=== PATIENT | female | born 1965 | race Caucasian/White ===

== ENCOUNTER → 2017-05-04 | Outpatient (CLI) | payer MEDICARE | END | disposition home or self-care (01) | LOC: SHCH 08:06 | PROVIDERS: ATTEND Internal Medicine Cardiovascular Disease | DX: I10 Essential (primary) hypertension (principal) | CPT/HCPCS: 93306 ==

== ENCOUNTER → 2017-06-06 | Outpatient (CLI) | payer MEDICARE | END | disposition home or self-care (01) | LOC: SHCH 08:19 | PROVIDERS: ATTEND Internal Medicine Cardiovascular Disease | DX: I10 Essential (primary) hypertension (principal) | CPT/HCPCS: 93975 ==

== ENCOUNTER → 2019-01-19 | Outpatient (CLI) | payer MEDICARE | END | disposition home or self-care (01) | LOC: OIH 13:00 | PROVIDERS: ATTEND Internal Medicine | DX: M16.11 Unilateral primary osteoarthritis, right hip (principal) | CPT/HCPCS: 73502 ==

== ENCOUNTER → 2022-11-11 | Outpatient (CLI) | payer MEDICARE | END | disposition home or self-care (01) | LOC: RAH 13:32 | PROVIDERS: ATTEND Internal Medicine | DX: S00.03XA Contusion of scalp, initial encounter (principal); S00.83XA Contusion of other part of head, initial encounter; S09.90XA Unspecified injury of head, initial encounter; M47.812 Spondylosis without myelopathy or radiculopathy, cervical region; R07.89 Other chest pain; R07.81 Pleurodynia; M54.14 Radiculopathy, thoracic region; M54.12 Radiculopathy, cervical region; M25.561 Pain in right knee; M25.511 Pain in right shoulder; M24.9 Joint derangement, unspecified; L03.119 Cellulitis of unspecified part of limb; X58.XXXA Exposure to other specified factors, initial encounter; Y93.89 Activity, other specified; Y92.89 Other specified places as the place of occurrence of the external cause; Y99.8 Other external cause status | CPT/HCPCS: 70450; 72125 ==

== ENCOUNTER 2022-11-12 12:01 | Inpatient (IN) | payer MEDICARE ==
[~2022-11-12] VITALS: Ht 152.4 cm; Wt 82.6 kg
[2022-11-12] MEDS ORDERED: ONDANSETRON 4MG INJ IVP ONE (13:00)
[2022-11-12] MEDS ORDERED: MORPHINE 2 MG SYG IVP ONE (13:00)
[2022-11-12 13:11] LABS: BASOPHILS % (AUTO) 0.5 % (0.0-5.0); EOSINOPHILS % (AUTO) 0.5 % (0.0-8.0); LYMPHOCYTES % (AUTO) 21.7 % (21.0-51.0); MEAN CORPUSCULAR HEMOGLOBIN 30.7 pg (27.0-33.0); MEAN CORPUSCULAR VOLUME 90.5 fL (79-99); MONOCYTES % (AUTO) 8.8 % (3.0-13.0); NEUTROPHILS % (AUTO) 68.1 % (40.0-77.0); PLATELET COUNT (AUTO) 186 K/uL (130-400); RED BLOOD CELL COUNT(AUTO) 4.75 MIL/uL (4.00-5.50); WHITE BLOOD COUNT (AUTO) 13.6 K/uL (4.8-10.8)
[2022-11-12 13:23] LABS: CREATININE 0.9 mg/dL (0.5-1.5); POTASSIUM 3.1 mmol/L (3.5-5.1)
[2022-11-12 13:24] LABS: INR 0.94 (0.85-1.15)
[2022-11-12 13:26] LABS: PARTIAL THROMBOPLASTIN TIME 25.1 SEC (26.3-35.5)
[2022-11-12 13:28] LABS: ALBUMIN 4.2 g/dL (3.5-5.0); TOTAL PROTEIN, SERUM 7.8 g/dL (6.0-8.3)
[2022-11-12 14:43] LABS: APPEARANCE,URINE CLEAR (CLEAR); BILIRUBIN,URINE NEGATIVE (NEGATIVE); COLOR,URINE DARK-YELLOW (YELLOW); GLUCOSE, URINE (UA) NEGATIVE (NEGATIVE); KETONES,URINE NEGATIVE (NEGATIVE); LEUKOCYTE ESTERASE ,URINE 250 Leu/uL (NEGATIVE); NITRATE,URINE NEGATIVE (NEGATIVE); OCCULT BLOOD,URINE NEGATIVE (NEGATIVE); PH,URINE 6.5 (5.0-8.0); PROTEIN,URINE 20 mg/dL (NEGATIVE); UROBILINOGEN,URINE 0.2 mg/dL (0.2-1.0)
[2022-11-12 14:46] LABS: BACTERIA,URINE MOD /HPF (None Seen); MUCUS,URINE FEW LPF (None Seen); SQUAMOUS EPITHELIAL CELL,UR MOD /HPF (0-2)
[2022-11-12] MEDS: KETOROLAC 30MG VIAL (30MG/ML) IM PRN (18:33)
[2022-11-13] VITALS (7 sets, daily range): BP systolic 131–156; BP diastolic 68–87; PULSE 56–79; RESP 16–20; O2SAT 96–97
[2022-11-13] MEDS ORDERED: POTASSIUM CHLORIDE 10% ELIXIR 20 MEQ/15 ML UDCUP PO PRN (03:30)
[2022-11-13] MEDS ORDERED: POTASSIUM CHLORIDE 20MEQ/100ML 100 ML IV PRN ×2 (03:30)
[2022-11-13] MEDS: KCL 20 MEQ ERTAB PO PRN ×3 (03:50→09:27)
[2022-11-13] MEDS: KETOROLAC 30MG VIAL (30MG/ML) IM PRN ×3 (03:50→19:48)
[2022-11-13] MEDS: ACETAMINOPHEN 325 MG TAB PO PRN (04:46)
[2022-11-13] MEDS: TRAMADOL HCL 50 MG TABLET PO PRN ×2 (13:10→18:46)
[2022-11-14] VITALS (8 sets, daily range): BP systolic 110–166; BP diastolic 53–70; PULSE 58–63; RESP 18–22; O2SAT 97
[2022-11-14] MEDS: TRAMADOL HCL 50 MG TABLET PO PRN ×3 (00:39→20:06)
[2022-11-14] MEDS: ONDANSETRON 4MG INJ IVP PRN ×3 (02:08→16:01)
[2022-11-14] MEDS: KETOROLAC 30MG VIAL (30MG/ML) IM PRN ×3 (02:09→16:01)
[2022-11-14 02:34] LABS: POTASSIUM 3.9 mmol/L (3.5-5.1)
[2022-11-14 09:57] LABS: BASOPHILS % (AUTO) 0.1 % (0.0-5.0); EOSINOPHILS % (AUTO) 0.4 % (0.0-8.0); HEMATOCRIT 40.8 % (36-48); LYMPHOCYTES % (AUTO) 12.4 % (21.0-51.0); MEAN CORPUSCULAR HEMOGLOBIN 30.5 pg (27.0-33.0); MEAN CORPUSCULAR HGB CONC 33.8 g/dL (32.0-36.0); MEAN CORPUSCULAR VOLUME 90.3 fL (79-99); MONOCYTES % (AUTO) 7.5 % (3.0-13.0); NEUTROPHILS % (AUTO) 79.2 % (40.0-77.0); PLATELET COUNT (AUTO) 221 K/uL (130-400); RED BLOOD CELL COUNT(AUTO) 4.52 MIL/uL (4.00-5.50); WHITE BLOOD COUNT (AUTO) 13.8 K/uL (4.8-10.8)
[2022-11-14 10:03] LABS: INR 0.95 (0.85-1.15); PROTHROMBIN TIME 11.1 SEC (9.6-11.6)
[2022-11-14 10:04] LABS: CREATININE 0.8 mg/dL (0.5-1.5); PARTIAL THROMBOPLASTIN TIME 25.7 SEC (26.3-35.5); POTASSIUM 4.6 mmol/L (3.5-5.1)
[2022-11-14 10:08] LABS: ALBUMIN 3.6 g/dL (3.5-5.0); MAGNESIUM 1.9 mg/dL (1.80-2.40); TOTAL PROTEIN, SERUM 7.4 g/dL (6.0-8.3)
[2022-11-14] MEDS: ACETAMINOPHEN 325 MG TAB PO PRN (12:30)
[2022-11-15] VITALS (10 sets, daily range): BP systolic 149–167; BP diastolic 71–94; PULSE 51–58; RESP 18–22; O2SAT 97–100
[2022-11-15] MEDS: KETOROLAC 30MG VIAL (30MG/ML) IM PRN ×3 (00:08→13:08)
[2022-11-15] MEDS: ONDANSETRON 4MG INJ IVP PRN ×4 (00:08→20:13)
[2022-11-15] MEDS: LOSARTAN 25 MG TABLET PO SCH (11:02)
[2022-11-15] MEDS: ACETAMINOPHEN 325 MG TAB PO PRN (11:51)
[2022-11-15] MEDS: KETOROLAC 30MG VIAL (30MG/ML) IVP PRN (20:21)
[2022-11-16] MEDS: TRAMADOL HCL 50 MG TABLET PO PRN ×2 (00:06→07:42)
[2022-11-16] MEDS: ACETAMINOPHEN 325 MG TAB PO PRN (01:27)
[2022-11-16] MEDS: KETOROLAC 30MG VIAL (30MG/ML) IVP PRN ×3 (02:18→18:09)
[2022-11-16 04:00] VITALS: BP 175/86; PULSE 53; RESP 18
[2022-11-16] MEDS: LOSARTAN 25 MG TABLET PO SCH (07:37)
[2022-11-16 08:30] VITALS: BP 152/82; PULSE 62; RESP 18
[2022-11-16 09:00] VITALS: O2SAT 97
[2022-11-16 12:44] VITALS: BP 138/87; PULSE 47; RESP 18
[2022-11-16 16:30] VITALS: BP 143/76; PULSE 53; RESP 18
[2022-11-16 20:00] VITALS: BP_SYST 123; BP_SYST 154; BP_DIAS 73; BP_DIAS 99; PULSE 53; PULSE 83; RESP 18; O2SAT 97
[2022-11-17] VITALS: BP 143/85; PULSE 56; RESP 18
[2022-11-17] MEDS: KETOROLAC 30MG VIAL (30MG/ML) IVP PRN ×3 (00:01→11:15)
[2022-11-17 04:30] VITALS: BP 144/74; PULSE 51; RESP 18
[2022-11-17] MEDS: ONDANSETRON 4MG INJ IVP PRN (05:39)
[2022-11-17] MEDS: LOSARTAN 25 MG TABLET PO SCH (07:32)
[2022-11-17 07:53] VITALS: BP 142/84; PULSE 63; RESP 18
[2022-11-17 09:30] VITALS: O2SAT 96
[2022-11-17] MEDS: ACETAMINOPHEN 325 MG TAB PO PRN (10:32)
== END 2022-11-17 11:20 | disposition home or self-care (01) | DRG 964 ==
LOC: EDH 12:01 → EDHIP 19:20 → 2DH 11-13 03:30
PROVIDERS: ADMIT Student in an Organized Health Care Education/Training Program; ATTEND Student in an Organized Health Care Education/Training Program
DX: S22.31XA Fracture of one rib, right side, initial encounter for closed fracture (principal); S06.5XAA Traumatic subdural hemorrhage with loss of consciousness status unknown, initial encounter; J93.83 Other pneumothorax; S27.329A Contusion of lung, unspecified, initial encounter; I10 Essential (primary) hypertension; E11.9 Type 2 diabetes mellitus without complications; E78.00 Pure hypercholesterolemia, unspecified; E66.9 Obesity, unspecified; I25.10 Atherosclerotic heart disease of native coronary artery without angina pectoris; F17.210 Nicotine dependence, cigarettes, uncomplicated; F32.A Depression, unspecified; F41.9 Anxiety disorder, unspecified; Z68.35 Body mass index [BMI] 35.0-35.9, adult; V89.2XXA Person injured in unspecified motor-vehicle accident, traffic, initial encounter; Y93.89 Activity, other specified; Y92.89 Other specified places as the place of occurrence of the external cause; Y99.8 Other external cause status
CPT/HCPCS: 36415; 70450; 71250; 73030; 74176; 80053; 81001; 82550; 83735; 83874; 84132; 84484; 85025; 85610; 85730; 87088; 93005; 93306; G0378; J1885; J2270; J2405

== ENCOUNTER → 2022-12-07 | Outpatient (CLI) | payer MEDICARE | END | disposition home or self-care (01) | LOC: CANPRECLI → RAH 12:46 | PROVIDERS: ATTEND Neurological Surgery | DX: I61.9 Nontraumatic intracerebral hemorrhage, unspecified (principal) | CPT/HCPCS: 70450 ==

== ENCOUNTER → 2024-11-01 | Outpatient (CLI) | payer MEDICARE, MEDICAID ==
--- NOTE | 2024-11-01 22:12 | HMCIMG ---
EXAM: CT examination of the Brain without contrast. CLINICAL HISTORY: Headache. TECHNIQUE: Thin collimated axial CT images of the brain were obtained with sagittal and coronal reformatted images also submitted. CT scan done according to ALARA (As Low as Reasonably Achievable). CONTRAST USED: None. COMPARISON: CT brain dated 12/07/22. FINDINGS: No acute intracranial abnormality is present. Mild chronic small vessel ischemic disease. 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 No acute cortical infarction, hemorrhage, mass or mass effect. No hydrocephalus or abnormal extra-axial fluid collections. The posterior fossa is unremarkable. The skull base and calvarium are intact. The included portions of the paranasal sinuses and mastoid air cells are clear. IMPRESSION: No acute intracranial abnormality is present. Mild chronic small vessel ischemic disease. 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 No significant interval change from the prior imaging. /[place]
== END | disposition home or self-care (01) ==
LOC: RAH 13:28
PROVIDERS: ATTEND Internal Medicine
DX: I67.82 Cerebral ischemia (principal); R51.9 Headache, unspecified
CPT/HCPCS: 70450

== ENCOUNTER → 2025-01-17 | Outpatient (CLI) | payer MEDICARE ==
--- NOTE | 2025-01-17 14:28 | HMCIMG ---
Pelvis 1 view- AP and single view of the right hip History: OA, RIGHT HIP Comparison: none Findings: Bone density is preserved. No acute fractures or dislocations are seen. No blastic or lytic lesions or bones are identified. The soft tissues are unremarkable. Impression: No acute fracture or dislocation
== END | disposition home or self-care (01) ==
LOC: RAH 13:19
PROVIDERS: ATTEND Internal Medicine
DX: M16.11 Unilateral primary osteoarthritis, right hip (principal)
CPT/HCPCS: 73502